=== PATIENT | male | born 1965 | race African-American/Black ===

== ENCOUNTER 2021-11-05 18:42 | Inpatient (IN) | payer OTHER ==
[2021-11-05] MEDS ORDERED: ACETAMINOPHEN 1000 MG/100 ML BAG IVPB ONE (21:24)
[2021-11-05] MEDS ORDERED: ACETAMINOPHEN INJECTION 100 ML IVPB ONE (21:31)
[2021-11-05] MEDS ORDERED: SODIUM CHLORIDE 0.9% 500 ML INFUS.BAG IV ONE (21:34)
[2021-11-05] MEDS ORDERED: DEXAMETHASONE SOD PHOSPHATE 10 MG/1 ML VIAL IVPUSH ONE (21:34)
[2021-11-05] MEDS ORDERED: DEXAMETHASONE SOD PHOSPHATE 10 MG/1 ML VIAL ONE (21:54)
[2021-11-05 22:39] LABS: BASO % 0.3 % (0-2.0); EOS % 1.4 % (0-4.5); HEMATOCRIT 41.3 % (35.4-49); HEMOGLOBIN 13.7 GM/dL (11.7-16.9); MCH 28.5 pg (25.7-33.7); MCHC 33.1 g/dl (32.0-35.9); MEAN CELL VOLUME 86.1 fl (80-96); MEAN PLT VOLUME 7.2 fl (7.5-11.1); NEUT % 64.3 % (42.8-82.8); PLATELET COUNT 233 10^3/uL (134-434); RDW 13.2 % (11.9-15.9); WHITE BLOOD COUNT 5.8 K/mm3 (4.0-10.0)
[2021-11-05 22:40] LABS: VENOUS BASE EXCESS 2.6 mmol/L (-2-2); VENOUS PCO2 48.3 mmHg (38-52); VENOUS PH 7.387 (7.310-7.410)
[2021-11-05 22:48] LABS: INR 1.15 (0.83-1.09); PROTHROMBIN TIME (PATIENT) 13.2 SEC (9.7-13.0)
[2021-11-05 22:50] LABS: ACTIVATED PTT 30.1 SECONDS (25.2-36.5)
[2021-11-05 22:56] LABS: CHLORIDE 99 mmol/L (98-107); SODIUM 135 mmol/L (136-145)
[2021-11-05 22:58] LABS: ANION GAP 8 MMOL/L (8-16); CALCIUM 8.3 mg/dL (8.5-10.1); CO2 28 mmol/L (21-32)
[2021-11-05 22:59] LABS: ALBUMIN 3.1 g/dl (3.4-5.0); GLUCOSE,RANDOM 91 mg/dL (74-106)
[2021-11-05 23:01] LABS: BILIRUBIN,DIRECT 0.7 mg/dL (0.0-0.2); SGOT/AST 84 U/L (15-37); SGPT/ALT 101 U/L (13-61)
[2021-11-05 23:03] LABS: BILIRUBIN,TOTAL 1.3 mg/dL (0.2-1)
[2021-11-05 23:04] LABS: ALK PHOS 61 U/L (45-117)
[2021-11-05 23:43] LABS: LDH 468 U/L (87-246)
[2021-11-06 00:32] LABS: EPI CELLS 8 /uL (0-25.1); HYALINE CASTS 5 /uL (0-3.1); URINE APPEARANCE CLEAR; URINE BACTERIA 2 /uL (0-1359); URINE BILIRUBIN 1+ (NEGATIVE); URINE COLOR DK YELLOW; URINE GLUCOSE (UA) NEGATIVE (NEGATIVE); URINE KETONE 2+ (NEGATIVE); URINE LEUK ESTERASE NEGATIVE (NEGATIVE); URINE NITRITE NEGATIVE (NEGATIVE); URINE PROTEIN 2+ (NEGATIVE); URINE RBC 20 /uL (0-23.9); URINE WBC 12 /uL (0-25.8)
[2021-11-06 05:21] VITALS: BMI 38.4
[2021-11-06 10:21] LABS: HEMATOCRIT 39.9 % (35.4-49); HEMOGLOBIN 13.4 GM/dL (11.7-16.9); MCH 28.8 pg (25.7-33.7); MCHC 33.5 g/dl (32.0-35.9); MEAN PLT VOLUME 7.4 fl (7.5-11.1); PLATELET COUNT 239 10^3/uL (134-434); RBC 4.64 M/mm3 (4.00-5.60); WHITE BLOOD COUNT 3.1 K/mm3 (4.0-10.0)
[2021-11-06 10:42] LABS: CHLORIDE 103 mmol/L (98-107); SODIUM 139 mmol/L (136-145)
[2021-11-06 10:44] LABS: CALCIUM 8.2 mg/dL (8.5-10.1)
[2021-11-06 10:45] LABS: ALBUMIN 2.9 g/dl (3.4-5.0); ANION GAP 10 MMOL/L (8-16); BLOOD UREA NITROGEN 17.2 mg/dL (7-18); CO2 26 mmol/L (21-32)
[2021-11-06 10:46] LABS: GLUCOSE,RANDOM 200 mg/dL (74-106)
[2021-11-06 10:48] LABS: CREATININE 0.9 mg/dL (0.55-1.3); SGOT/AST 72 U/L (15-37)
[2021-11-06 10:49] LABS: SGPT/ALT 97 U/L (13-61)
[2021-11-06 10:50] LABS: BILIRUBIN,TOTAL 0.9 mg/dL (0.2-1); TOT PROT 6.6 g/dl (6.4-8.2)
[2021-11-06 10:51] LABS: MAGNESIUM 2.5 mg/dL (1.8-2.4)
[2021-11-06 10:52] LABS: ALK PHOS 57 U/L (45-117)
[2021-11-06 10:55] LABS: PHOSPHOROUS 3.4 mg/dL (2.5-4.9)
[2021-11-06] MEDS: ZINC SULFATE 220 MG CAPSULE (FP) PO SCH (11:37)
[2021-11-06] MEDS: ASCORBIC ACID 500 MG TABLET (FP) PO SCH (11:37)
[2021-11-06] MEDS: DEXAMETHASONE SOD PHOSPHATE 10 MG/1 ML VIAL IVPUSH SCH (11:37)
[2021-11-06] MEDS: FAMOTIDINE 20 MG TABLET PO SCH (11:37)
[2021-11-06] MEDS: ENOXAPARIN NA (PORCINE) 40 MG/0.4 ML DISP.SYRIN SQ SCH (11:37)
[2021-11-06] MEDS: CHOLECALCIFEROL (VIT D3) 1,000 UNIT (25 MCG) TABLET PO SCH (11:37)
[2021-11-06] MEDS ORDERED: amLODIPine BESYLATE 5 MG TABLET (FP) PO ONE (12:45)
[2021-11-06] MEDS ORDERED: REMDESIVIR 200 MG in SODIUM CHLORIDE 250 ML IVPB ONE (15:00)
[2021-11-07] MEDS ORDERED: MELATONIN 5 MG TABLETS PO PRN (02:25)
[2021-11-07 09:33] LABS: BASO % 0.2 % (0-2.0); HEMATOCRIT 41.2 % (35.4-49); HEMOGLOBIN 13.7 GM/dL (11.7-16.9); LYMPH % 16.2 % (8-40); MCH 28.6 pg (25.7-33.7); MCHC 33.2 g/dl (32.0-35.9); MEAN CELL VOLUME 86.2 fl (80-96); MEAN PLT VOLUME 7.7 fl (7.5-11.1); MONO % 10.7 % (3.8-10.2); NEUT % 72.9 % (42.8-82.8); PLATELET COUNT 321 10^3/uL (134-434); RBC 4.77 M/mm3 (4.00-5.60); RDW 12.8 % (11.9-15.9); WHITE BLOOD COUNT 9.5 K/mm3 (4.0-10.0)
[2021-11-07] MEDS: ASCORBIC ACID 500 MG TABLET (FP) PO SCH (10:40)
[2021-11-07] MEDS: ZINC SULFATE 220 MG CAPSULE (FP) PO SCH (10:40)
[2021-11-07] MEDS: DEXAMETHASONE SOD PHOSPHATE 10 MG/1 ML VIAL IVPUSH SCH (10:40)
[2021-11-07] MEDS: CHOLECALCIFEROL (VIT D3) 1,000 UNIT (25 MCG) TABLET PO SCH (10:41)
[2021-11-07] MEDS: amLODIPine BESYLATE 5 MG TABLET (FP) PO SCH (10:41)
[2021-11-07] MEDS: FAMOTIDINE 20 MG TABLET PO SCH (10:41)
[2021-11-07 10:48] LABS: BLOOD UREA NITROGEN 20.6 mg/dL (7-18); CALCIUM 8.4 mg/dL (8.5-10.1)
[2021-11-07 10:49] LABS: ALBUMIN 2.9 g/dl (3.4-5.0); MAGNESIUM 2.5 mg/dL (1.8-2.4)
[2021-11-07 10:52] LABS: CREATININE 0.8 mg/dL (0.55-1.3)
[2021-11-07 10:53] LABS: BILIRUBIN,TOTAL 0.6 mg/dL (0.2-1); TOT PROT 6.6 g/dl (6.4-8.2)
[2021-11-07] MEDS: ENOXAPARIN NA (PORCINE) 40 MG/0.4 ML DISP.SYRIN SQ SCH (11:36)
[2021-11-07] MEDS: REMDESIVIR 100 MG in SODIUM CHLORIDE 250 ML IVPB SCH (15:28)
[2021-11-08] MEDS: DEXAMETHASONE SOD PHOSPHATE 10 MG/1 ML VIAL IVPUSH SCH (09:27)
[2021-11-08] MEDS: CHOLECALCIFEROL (VIT D3) 1,000 UNIT (25 MCG) TABLET PO SCH (09:27)
[2021-11-08] MEDS: ASCORBIC ACID 500 MG TABLET (FP) PO SCH (09:27)
[2021-11-08] MEDS: amLODIPine BESYLATE 5 MG TABLET (FP) PO SCH (09:27)
[2021-11-08] MEDS: ENOXAPARIN NA (PORCINE) 40 MG/0.4 ML DISP.SYRIN SQ SCH (09:27)
[2021-11-08] MEDS: ZINC SULFATE 220 MG CAPSULE (FP) PO SCH (09:27)
[2021-11-08] MEDS: FAMOTIDINE 20 MG TABLET PO SCH (09:27)
[2021-11-08 09:49] LABS: BASO % 0.2 % (0-2.0); EOS % 0.1 % (0-4.5); HEMATOCRIT 42.1 % (35.4-49); HEMOGLOBIN 13.7 GM/dL (11.7-16.9); LYMPH % 19.7 % (8-40); MCH 28.1 pg (25.7-33.7); MCHC 32.5 g/dl (32.0-35.9); MEAN CELL VOLUME 86.6 fl (80-96); MEAN PLT VOLUME 7.6 fl (7.5-11.1); MONO % 8.9 % (3.8-10.2); NEUT % 71.1 % (42.8-82.8); PLATELET COUNT 368 10^3/uL (134-434); RBC 4.86 M/mm3 (4.00-5.60); RDW 12.7 % (11.9-15.9); WHITE BLOOD COUNT 9.8 K/mm3 (4.0-10.0)
[2021-11-08 10:13] LABS: CALCIUM 8.6 mg/dL (8.5-10.1)
[2021-11-08 10:14] LABS: ALBUMIN 2.9 g/dl (3.4-5.0); MAGNESIUM 2.5 mg/dL (1.8-2.4)
[2021-11-08 10:17] LABS: CREATININE 0.9 mg/dL (0.55-1.3)
[2021-11-08 10:19] LABS: BILIRUBIN,TOTAL 0.6 mg/dL (0.2-1); TOT PROT 6.6 g/dl (6.4-8.2)
[2021-11-08 10:21] LABS: BLOOD UREA NITROGEN 22.2 mg/dL (7-18)
[2021-11-08] MEDS: REMDESIVIR 100 MG in SODIUM CHLORIDE 250 ML IVPB SCH (15:17)
[2021-11-09 09:15] LABS: HEMATOCRIT 41.9 % (35.4-49); HEMOGLOBIN 13.7 GM/dL (11.7-16.9); MCH 28.2 pg (25.7-33.7); MCHC 32.6 g/dl (32.0-35.9); MEAN CELL VOLUME 86.5 fl (80-96); MEAN PLT VOLUME 7.3 fl (7.5-11.1); PLATELET COUNT 419 10^3/uL (134-434); RBC 4.85 M/mm3 (4.00-5.60); WHITE BLOOD COUNT 10.6 K/mm3 (4.0-10.0)
[2021-11-09 10:09] LABS: ALBUMIN 2.7 g/dl (3.4-5.0); BLOOD UREA NITROGEN 17.7 mg/dL (7-18); CALCIUM 8.8 mg/dL (8.5-10.1); MAGNESIUM 2.3 mg/dL (1.8-2.4)
[2021-11-09 10:12] LABS: CREATININE 0.9 mg/dL (0.55-1.3)
[2021-11-09 10:14] LABS: BILIRUBIN,TOTAL 0.4 mg/dL (0.2-1); TOT PROT 6.3 g/dl (6.4-8.2)
[2021-11-09] MEDS: FAMOTIDINE 20 MG TABLET PO SCH (10:40)
[2021-11-09] MEDS: DEXAMETHASONE SOD PHOSPHATE 10 MG/1 ML VIAL IVPUSH SCH (10:40)
[2021-11-09] MEDS: CHOLECALCIFEROL (VIT D3) 1,000 UNIT (25 MCG) TABLET PO SCH (10:40)
[2021-11-09] MEDS: amLODIPine BESYLATE 5 MG TABLET (FP) PO SCH (10:40)
[2021-11-09] MEDS: ENOXAPARIN NA (PORCINE) 40 MG/0.4 ML DISP.SYRIN SQ SCH (10:41)
[2021-11-09] MEDS: ASCORBIC ACID 500 MG TABLET (FP) PO SCH (10:41)
[2021-11-09] MEDS: ZINC SULFATE 220 MG CAPSULE (FP) PO SCH (10:41)
[2021-11-09 11:06] LABS: ANISOCYTOSIS 0; MACROCYTOSIS 0; PLATELET ESTIMATE NORMAL
[2021-11-09] MEDS: REMDESIVIR 100 MG in SODIUM CHLORIDE 250 ML IVPB SCH (16:01)
[2021-11-09 17:03] VITALS: BP 142/78; PULSE 88; TEMP 98.5
[2021-11-10] MEDS ORDERED: DEXAMETHASONE 4 MG TABLET (FP) PO SCH (10:00)
== END 2021-11-09 17:10 | disposition home or self-care (01) | DRG 137 ==
LOC: JER 18:42 → JERBED 11-06 00:18 → J8W 11-06 04:02
PROVIDERS: ADMIT Internal Medicine; ATTEND Nurse Practitioner Acute Care
PROC: XW033E5 Introduction of Remdesivir Anti-infective into Peripheral Vein, Percutaneous Approach, New Technology Group 5 (ICD-10-PCS; principal; 2021-11-06)
DX: U07.1 COVID-19 (principal); J12.82 Pneumonia due to coronavirus disease 2019; I10 Essential (primary) hypertension; R31.9 Hematuria, unspecified; M62.82 Rhabdomyolysis; E66.9 Obesity, unspecified; Z68.38 Body mass index [BMI] 38.0-38.9, adult
CPT/HCPCS: 36415; 71045-TC-FY; 76700-TC; 80053; 81003; 82248; 82550; 82553; 82728; 82803; 83605; 83615; 83735; 84100; 84484; 85025; 85027; 85379; 85610; 85730; 86140; 86705; 86803; 87086; 87340; 87517; 87804; 93005; 93010; 99285-25; C9399; C9803; J0131; J1100; U0003; U0005